=== PATIENT | female | born 2000 | race Caucasian/White ===

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

== ENCOUNTER 2020-03-21 05:00 | Emergency (ER) | payer OTHER ==
[2020-03-21] MEDS ORDERED: NORMAL SALINE 1000 ML 1,000 ML IV ONE (06:44)
[2020-03-21 07:02] LABS: ABSOLUTE BASOPHILS # (AUTO) 0.1 10^3/uL (0.0-0.2); ABSOLUTE EOSINOPHILS # (AUTO) 0.3 10^3/uL (0.0-0.6); ABSOLUTE LYMPHOCYTES (AUTO) 2.9 10^3/uL (0.5-4.7); ABSOLUTE MONOCYTES (AUTO) 1.1 10^3/uL (0.1-1.4); ABSOLUTE NEUT (AUTO) 7.4 10^3/uL (1.7-8.2); BASOPHILS % (AUTO) 0.7 % (0-2); EOSINOPHILS % (AUTO) 2.5 % (0-6); HEMOGLOBIN 13.6 g/dL (12.0-15.5); LYMPHOCYTES % (AUTO) 24.9 % (13-45); MEAN CORPUSCULAR HEMOGLOBIN 29.4 pg (27.0-33.4); MEAN CORPUSCULAR VOLUME 86 fl (80-97); MONOCYTES % (AUTO) 8.9 % (3-13); PLATELET COUNT 331 10^3/uL (150-450); RED BLOOD COUNT 4.63 10^6/uL (3.72-5.28); RED CELL DISTRIBUTION WIDTH 13.5 % (11.5-14.0); TOTAL CELLS COUNTED % (AUTO) 100 %; WHITE BLOOD COUNT 11.8 10^3/uL (4.0-10.5)
[2020-03-21 07:10] LABS: APPEARANCE,URINE CLEAR; BILIRUBIN,URINE NEGATIVE (NEGATIVE); COLOR,URINE YELLOW; GLUCOSE, URINE NEGATIVE (NEGATIVE); KETONES,URINE NEGATIVE (NEGATIVE); LEUKOCYTE ESTERASE,URINE NEGATIVE (NEGATIVE); NITRITE,URINE NEGATIVE (NEGATIVE); PROTEIN,URINE NEGATIVE (NEGATIVE); URINE SPECIFIC GRAVITY 1.011; UROBILINOGEN,URINE NEGATIVE mg/dL (<2.0)
[2020-03-21 07:23] LABS: ALBUMIN 4.6 g/dL (3.5-5.0); ALKALINE PHOSPHATASE 81 U/L (38-126); ANION GAP 12 (5-19); ASPARTATE AMINO TRANSFERASE 25 U/L (14-36); BILIRUBIN,DIRECT 0.1 mg/dL (0.0-0.4); BILIRUBIN,TOTAL 0.4 mg/dL (0.2-1.3); BLOOD UREA NITROGEN 13 mg/dL (7-20); CARBON DIOXIDE 22 mmol/L (22-30); CHLORIDE 104 mmol/L (98-107); GLUCOSE 99 mg/dL (75-110); TOTAL PROTEIN 8.1 g/dL (6.3-8.2)
[2020-03-21 07:24] LABS: URINE AMPHETAMINES SCREEN NEGATIVE; URINE BARBITURATES SCREEN NEGATIVE; URINE BENZODIAZEPINES SCREEN NEGATIVE; URINE COCAINE SCREEN NEGATIVE; URINE METHADONE SCREEN NEGATIVE; URINE PHENCYCLIDINE SCREEN NEGATIVE
[2020-03-21 07:26] LABS: URINE MARIJUANA (THC) SCREEN UNCONFIRMED POSITIVE
--- NOTE | 2020-03-21 07:50 | RADIOLOGY REPORT (SQ) ---
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 TECHNIQUE: Multiple grayscale and color Doppler images of the pelvis were obtained transabdominally. COMPARISON: None available FINDINGS: The uterus measures 9.3 x 5.4 x 7.2 cm. The endometrium measures 2-3 mm in thickness. No myometrial mass is seen. The right ovary measures 2.6 x 3.1 x 2.6 cm. The left ovary measures 3.7 x 3.3 x 3.0 cm. Normal arterial waveforms were obtained from both ovaries. No free intraperitoneal fluid is seen within the posterior cul-de-sac. IMPRESSION: No sonographic abnormality is seen within the pelvis.
--- NOTE | 2020-03-21 08:34 | RADIOLOGY REPORT (SQ) ---
EXAM DESCRIPTION: ACUTE ABDOMEN SERIES IMAGES COMPLETED DATE/TIME: 03/21/2020 8:01 am REASON FOR STUDY: abd pain COMPARISON: None. NUMBER OF VIEWS: Three views. TECHNIQUE: Frontal chest, supine abdomen and upright/decubitus abdomen radiographic images acquired. LIMITATIONS: None. FINDINGS: CHEST: Lungs clear of infiltrates. FREE AIR: None. No abnormal gas collections. BOWEL GAS PATTERN: Nonobstructive pattern. No dilated loops or air fluid levels. CALCIFICATIONS: No suspicious calcifications. HARDWARE: None in the abdomen. SOFT TISSUES: No gross mass or suggestion of organomegaly. BONES: No acute fracture. No worrisome bone lesions. OTHER: No other significant finding. IMPRESSION: NO RADIOGRAPHIC EVIDENCE FOR ACUTE ABDOMINAL DISEASE. TECHNICAL DOCUMENTATION: JOB ID: [id number] 2010 [employer]- All Rights Reserved Reading location - IP/workstation name: [email or web address]
[2020-03-21 09:21] LABS: CHLAM PCR NOT DETECTED (NOT DETECT)
[2020-03-21] MEDS ORDERED: DEXTROSE 5%-LACTATED RINGERS 1,000 ML IV ONE (09:40)
--- NOTE | 2020-03-21 10:07 | ER Document Report ---
Entered by CAROLZ PABON SCRIBE 03/21/20 0618 Acting as scribe for:NGUYEN NGUYEN MD ED GI/ - General Chief Complaint: Vaginal Pain Stated Complaint: PELVIC PAIN Time Seen by Provider: 03/21/20 06:09 Primary Care Provider: LAUREL DOAN FNP-C [Primary Care Provider] - Follow up as needed Mode of Arrival: Ambulatory Information source: Patient Notes: This 19 year old female patient presents to the ED today with complaints of "ce rvix pain" that started around 0300 this morning. Patient states that she got up around 0230 to urinate and have a bowel movement and that immediately after, her "cervix started hurting." She states "my cervix usually gets swollen and painful when I first start my period, but not this bad." She reports her menstrual cycles are regular, last one was mid-February, and that she is due for her next soon. She did take 1500 mg Acetaminophen prior to arrival and reports that her pain is not as bad compared to onset. Denies dysruria, urinary frequency, abdominal distension, constipation, diarrhea, vaginal discharge, fever, chills, cough, sore throat, or back pain. She is not any form of control. TRAVEL OUTSIDE OF THE [place] IN LAST 30 DAYS: No - Related Data Allergies/Adverse Reactions: No Known Allergies Allergy (Unverified 03/21/20 05:10) Home Medications: Promethazine Past Medical History - General Information source: Patient, Parent - Social History Smoking Status: Never Smoker Cigarette use (# per day): No Chew tobacco use (# tins/day): No Smoking Education Provided: No Frequency of alcohol use: None Drug Abuse: Marijuana Family History: Reviewed & Not Pertinent Patient has suicidal ideation: No Patient has homicidal ideation: No Pulmonary Medical History: Reports: Hx Asthma Neurological Medical History: Reports: Hx Migraine - Immunizations Immunizations up to date: Yes Hx Diphtheria, Pertussis, Tetanus Vaccination: Yes Review of Systems - Review of Systems Constitutional: See HPI. denies: Chills, Fever EENT: See HPI. denies: Throat pain Cardiovascular: No symptoms reported Respiratory: See HPI. denies: Cough Gastrointestinal: See HPI, Abdominal pain, Last bowel movement - regular at 0230 this morning. denies: Abdomen distended, Diarrhea, Constipation Genitourinary: See HPI. denies: Dysuria, Frequency Female Genitourinary: See HPI, Last menstrual period - mid-February. denies: Vaginal discharge Musculoskeletal: See HPI. denies: Back pain Skin: No symptoms reported Hematologic/Lymphatic: No symptoms reported Neurological/Psychological: No symptoms reported -: Yes All other systems reviewed and negative Physical Exam - Vital signs Vitals: Temp Pulse Resp BP Pulse Ox 97.9 F 82 15 127/48 H 100 03/21/20 05:08 03/21/20 05:08 03/21/20 05:08 03/21/20 05:08 03/21/20 05:08 - General General appearance: Appears well, Alert In distress: None - Respiratory Respiratory status: No respiratory distress Chest status: Nontender Breath sounds: Normal Chest palpation: Normal - Cardiovascular Rhythm: Regular Heart sounds: Normal auscultation Murmur: No Friction rub: No Gallop: None auscultated - Abdominal Inspection: Normal Distension: No distension Bowel sounds: Normal Tenderness: Tender - Suprapubic and RLQ tenderness to palpation, Rebound, Other - Abdomen soft Organomegaly: No organomegaly - Back Back: Normal, Nontender. No: CVA tenderness - Extremities General upper extremity: Normal inspection General lower extremity: Normal inspection. No: Edema - Neurological Neuro grossly intact: Yes Orientation: AAOx4 [place] Coma Scale Eye Opening: Spontaneous Shayy Coma Scale Verbal: Oriented Shayy Coma Scale Motor: Obeys Commands Shayy Coma Scale Total: 15 - Psychological Associated symptoms: Normal affect, Normal mood - Skin Skin Temperature: Warm Skin Moisture: Dry Skin Color: Normal Course - Re-evaluation Re-evalutation: 03/21/20 12:55 Patient states her pain is less at this point time patient has just completed CT scan of abdomen and pelvis. Radiologist report that there may be a tubo-ovarian abscess versus some infectious or inflammatory process also there is a right de rmoid cyst noted. Patient denies any vaginal discharge again and and states that she is able to feel her cervix because she wants just before her menstrual cycle she says it swells and this was he believes is happening at this time as she is due for her next menstrual cycle. - Vital Signs Vital signs: Temp Pulse Resp BP Pulse Ox 98.4 F 71 17 106/68 99 03/21/20 12:25 03/21/20 12:25 03/21/20 12:25 03/21/20 12:25 03/21/20 12:25 03/21/20 12:56 Vital signs stable - Laboratory Result Diagrams: 03/21/20 06:46 03/21/20 06:46 Laboratory results interpreted by me: 03/21/20 06:46 WBC 11.8 H White blood cell count 11.8. No other abnormality noted on labs. - Diagnostic Test Radiology reviewed: Image reviewed, Reports reviewed Radiology results interpreted by me: 03/21/20 12:57 Abdomen/Pelvis CT 03/21/20 00:00 IMPRESSION: Question left tubo-ovarian abscess, versus ruptured follicular ovarian cyst with trace free fluid in the left adnexa cul-de-sac. Discussed with Dr Nguyen Right ovarian dermoid tumor Acute Abdomen Series 03/21/20 06:43 IMPRESSION: NO RADIOGRAPHIC EVIDENCE FOR ACUTE ABDOMINAL DISEASE. Pelvis Ultrasound 03/21/20 06:45 IMPRESSION: No sonographic abnormality is seen within the pelvis. CT abdomen and pelvis has a question of tubal left tubo-ovarian abscess versus ruptured follicular ovarian cyst with trace amount of free fluid in the left adnexa cul-de-sac also noted a right ovarian dermoid tumor. Acute abdominal series no acute process noted in the flat and upright abdomen or chest. Discharge - Discharge Clinical Impression: Tubal ovarian abscess Condition: Stable Disposition: HOME, SELF-CARE Instructions: Doxycycline ([facility]), Pelvic Pain ([facility]) Additional Instructions: Ovarian Cyst Your examination shows the presence of an ovarian cyst. This is a ball of fluid attached to the ovary. Ovarian cysts in women of child-bearing age are usually innocent. However, the cyst may cause pain when it grows or bursts. An innocent ovarian cyst will usually go away by itself. When the cyst becomes painful, you should rest. Pain medication may be required. Some women find a hot water bottle soothing. The pain usually resolves within one or two days. After menopause, an ovarian cyst may mean a tumor, and requires more aggressive evaluation -- usually surgery is recommended to remove or biopsy the cyst. A very large cyst requires evaluation at any age. Most cysts (even the innocent ones) require follow-up examination. Call the doctor or return at any time if the pain increases significantly, if you become faint, or if you experience vaginal bleeding. Prescriptions: Fluconazole [Diflucan] 150 mg PO ASDIR #2 tablet Metronidazole [Flagyl 500 mg Tablet] 500 mg PO BID #20 tablet Ibuprofen [Ibu] 800 mg PO TID PRN 7 Days #21 tablet PRN Reason: prn pain/swelling/fever Doxycycline Hyclate [Vibramycin 100 mg Tablet] 100 mg PO BID #20 tablet Referrals: LAUREL DOAN, [facility] [Primary Care Provider] - Follow up as needed I personally performed the services described in the documentation, reviewed and edited the documentation which was dictated to the scribe in my presence, and it accurately records my words and actions.
--- NOTE | 2020-03-21 12:40 | RADIOLOGY REPORT (SQ) ---
EXAM DESCRIPTION: CT ABD/PELVIS WITH IV ORAL IMAGES COMPLETED DATE/TIME: 03/21/2020 12:13 pm REASON FOR STUDY: abd pain/leukocytosis COMPARISON: Pelvic ultrasound 03/21/2020 TECHNIQUE: CT scan of the abdomen and pelvis performed using helical scanning technique with dynamic intravenous contrast injection. Patient drank oral contrast. Images reviewed with lung, soft tissue , and bone windows. Reconstructed coronal and sagittal MPR images reviewed. Delayed images for evalua tion of the urinary system also acquired. All images stored on PACS. All CT scanners at this facility use dose modulation, iterative reconstruction, and/or weight based d osing when appropriate to reduce radiation dose to as low as reasonably achievable (ALARA). [facility]: Dose Right [facility]: CareDose [facility]: Dose Right [facility]: Teradose 4D [facility]: Cooleaf CONTRAST TYPE AND DOSE: 100 mL of IV Omnipaque 350- low osmolar. RENAL FUNCTION: Creatinine not required, less than years old RADIATION DOSE: CT Rad equipment meets quality standard of care and radiation dose reduction techniq ues were employed. CTDIvol: 11.5 - 16.0 mGy. DLP: 1637 mGy-cm.. LIMITATIONS: None. FINDINGS: In the right adnexa, an 8 x 6.5 cm dermoid tumor is present containing fat calcium. In the left adnexa, trace fluid is present extending into the pelvic cul-de-sac. Left Ovary grossly normal size. Tubular structure in the adnexa seen, question hydrosalpinx. Given history of pelvic p ain and elevated white blood cell count, tubo-ovarian abscess could not be excluded. Ruptured left o varian cyst could cause trace adnexal and cul-de-sac fluid. Patient is not . Report called to Dr. Yang in the emergency room. Normal size uterus. No pelvic adenopathy LOWER CHEST: No significant findings. No nodules or infiltrates. LIVER: Normal size. No masses. No dilated ducts. SPLEEN: Normal size. No focal lesions. PANCREAS: No masses. No significant calcifications. No adjacent inflammation or peripancreatic fluid collections. Pancreatic duct not dilated. GALLBLADDER: No identified stones by CT criteria. No inflammatory changes to suggest cholecystitis. ADRENAL GLANDS: No significant masses or asymmetry. RIGHT KIDNEY AND URETER: No solid masses. No significant calcifications. No hydronephrosis or hyd roureter. LEFT KIDNEY AND URETER: No solid masses. No significant calcifications. No hydronephrosis or hydr oureter. AORTA AND VESSELS: No aneurysm. No dissection. Renal arteries, SMA, celiac without stenosis. RETROPERITONEUM: No retroperitoneal adenopathy, hemorrhage or masses. BOWEL AND PERITONEAL CAVITY: No masses or inflammatory changes. No free fluid or peritoneal masses. APPENDIX: Normal. PELVIS: As above ABDOMINAL WALL: No masses. No hernias. BONES: No significant or acute findings. OTHER: No other significant finding. IMPRESSION: Question left tubo-ovarian abscess, versus ruptured follicular ovarian cyst with trace f ree fluid in the left adnexa cul-de-sac. Discussed with Dr Yang Right ovarian dermoid tumor TECHNICAL DOCUMENTATION: JOB ID: [id number] Quality ID # [id number]: Final reports with documentation of one or more dose reduction techniques (e.g., Au tomated exposure control, adjustment of the mA and/or kV according to patient size, use of iterative reconstruction technique) 2010 [employer]- All Rights Reserved Reading location - IP/workstation name: [email or web address]
[2020-03-21 13:20] VITALS: BP 104/67
== END 2020-03-21 13:27 | disposition home or self-care (01) ==
LOC: ER 05:00
DX: N70.92 Oophoritis, unspecified (principal); D27.0 Benign neoplasm of right ovary; F12.10 Cannabis abuse, uncomplicated; J45.909 Unspecified asthma, uncomplicated; Z79.899 Other long term (current) drug therapy
CPT/HCPCS: 99285; 96361; 96365; 96366; 36415; 83605; 83690; 84703; 85025; 80053; 81001; 80307; 87491; 87591; 74022; 76856; 93976; 74177; J7121; J7030